=== PATIENT | male | born 2000 | race Caucasian/White ===

== ENCOUNTER 2022-02-10 14:03 | Outpatient (CLI) | payer OTHER ==
[2022-02-11 08:34] VITALS: BP 126/74
--- NOTE | 2022-02-11 08:34 | SLEEP CARE CONSULTATION ---
Information from patient questionnaire entered by Desi Clements. I have reviewed and concur with the information entered by Desi Clements. This document represents the service I personally performed and the decisions made by me, Elmo Green MD, [facility]. History of Present Illness Service Date and Time: 02/10/2022 1403 Reason for Visit: New patient Chief Complaint: reports: Insomnia, Unrefreshed sleep, Excessive daytime sleepiness, Frequent awakenings at night, Other (VERTIGO EPISODES AT NIGHT) Date of Onset: DEC 2020, VERTIGO EPISODES NOV 2021 Usual bedtime: 10-11PM Time it takes to fall asleep: VARIES, 5 MIN TO 1 HOUR Snores at night: Yes Observed to quit breathing while asleep: No Sleeps alone due to snoring: No Number of times waking at night: 1-2 Reasons for waking at night: reports: Other (VERTIGO AND UNKNOWN REASON ) Toss, Turn, or Twitch while sleeping: Yes Recalls having dreams: Yes (OCCASIONALLY ) Usually gets out of bed at: 0645 Feels refreshed in the morning: Yes (OCCASIONALLY) Morning headache: Yes (OCCASIONALLY, RESOLVES AN HOUR AFTER BEING UP ) Sleepy or fatigued during the day: Yes Ever fallen asleep while driving: No Takes day naps: Yes Dreams during day naps: No Prior sleep studies: No Additional HPI information: I had the pleasure of seeing Mr. Bhandari today regarding the possibility of him having a sleep disorder. As you know, he is a 21-year-old gentleman who complains of frequent awakenings, insomnia, unrefreshed sleep, and excessive daytime sleepiness for at least a year. He is being evaluated for possibly have seizures. The patient tells me that he normally goes to bed around 10 - 11 pm, and it takes him approximately 5 - 60 minutes to fall asleep. He has been told that he snores loudly and irregularly at night. He has never been observed to stop breathing in his sleep. He has a roommate. He can recall waking up on the average of 1 - 2 times during the night. Most of the time he wakes up because of unknown reason. He has never awakened because of his own snoring, choking, and having to gasp for air. There is a lot of tossing and turning in his sleep. He has somniloquy (sleep talking) but not somnambulism (sleep walking). Generally, there is no recollection of dreams. In the morning he usually gets up out of the bed around 6:45 a.m. not feeling refreshed nor rested. He occasionally has a morning headache. During the day he complains of feeling sleepy and fatigued. His score on [place] Sleepiness Scale is 17 out of 24. He never has fallen asleep while driving nor has had any accident due to sleepiness. Presently, he does not drive because the possible seizure. He usually takes naps during the day. He reports having impaired concentration during the day. - Parasomnia Symptoms Ever been unable to move upon waking from sleep: Yes Walks in sleep: No Talks in sleep: Yes Ever acted out dreams in sleep: No Ever felt weak in the knees when startled or emotional: No Bothered by creepy, crawly, restless sensations in legs: Yes Problems with memory or concentration: Yes Subjective Initial [place] Sleepiness Scale score: 17 (02/10/22) Past Medical History Past Medical History: reports: Other (UNKNOWN CONVULSIONS, SEEING PSYCHOLOGIST FOR POSSIBLE ANXIETY ) Social History The patient's occupation is a AM. Patient is Unknown and lives in . Have you smoked in the past 12 months: No Alcohol use: No Caffeine use: Yes Caffeine amount and frequency: 1 CAN , EVERY COUPLE OF DAYS Family History Family history of sleep disordered breathing: Yes Family Hx Sleep Apnea: Father: Snoring, Sleep apnea - Treated Allergies and Home Medications Known drug allergies: No Drug allergies reviewed: Yes Home medication list reviewed: Yes Review of Systems Weight gain over past 5 years: 15 Cardiovascular: denies: high blood pressure, palpitations, chest pain, irregular heart rate or pulse, leg or foot swelling, have to sleep sitting up, other Respiratory: denies: shortness of breath, wheeze, sputum production, chronic cough, other Gastrointestinal: denies: heartburn, difficulty swallowing, nausea, vomitting, diarrhea, abdominal pain, other Urinary: denies: incontinence, frequency, urgency, impotence, other Neurological: reports: seizure (UNDIAGNOSED ) Psychiatric: reports: anxiety Ear/Nose/Throat: reports: wisdom teeth removed, other (VERTIGO) Endocrine: reports: sluggishness, too hot or cold Musculoskeletal: denies: joint pain, neck pain, back pain, joint swelling, muscle pain or cramping, mobility problems, other Immunologic: denies: sneezing, rash, itching, allergies to food or environment, other Physical Exam Vital signs obtained and entered by: BERNARDO DOSHI Blood Pressure: 126/74 (LEFT ARM ) Cuff size: regular Heart Rate: 92 O2 Saturation: 96 Height: 5 ft 11 in Weight: 203 lb Body Mass Index: 28.3 BMI Classification: Overweight Neck circumference: 16 (INCHES) Mood/affect: Normal HEENT: No craniofacial malformation Nostrils: patent to airflow Turbinates: normal Septum: midline Mouth and throat: narrow oropharynx Hard palate: normal Uvula: normal Uvula visualization: 50% Mallampati Class II Tongue: normal in size Tonsils: small Chin and jaw: normal size and position Neck: normal w/o lymphadenopathy or thyromegaly Heart: regular rate and rhythm Lungs: clear bilaterally Extremities: no edema or clubbing Neurologic: intact Impression and Plan IMPRESSION: 1. Possible Obstructive Sleep Apnea-Hypopnea Syndrome, as suggested by history of snoring, unrefreshed sleep, cognitive impairment, and daytime hypersomnolence. Narrow oropharynx is a common predisposing factor for obstructive sleep apnea-hypopnea syndrome. I recommend proceeding to polysomnography to confirm the diagnosis and to assess severity. I informed the patient of what the sleep studies involve and after some discussion, he agreed to proceed. Plan: 1. Schedule polysomnography and return in 1 to 2 weeks after the study to discuss result and initiate therapy. Follow up with Sleep Care in: 1-2 months Visit Type: In Office Time Spent with Patient (minutes): 15 Provider Statement: I spent 100% of the Face to Face Visit with the patient with greater than 50% spent counseling the patient and coordination of care.
== END 2022-02-10 14:04 | disposition home or self-care (01) ==
LOC: SC 14:03
PROVIDERS: ATTEND Internal Medicine Pulmonary Disease
DX: R06.83 Snoring (principal); G47.8 Other sleep disorders; G47.10 Hypersomnia, unspecified; R53.83 Other fatigue; R56.9 Unspecified convulsions; E66.3 Overweight; Z68.28 Body mass index [BMI] 28.0-28.9, adult
CPT/HCPCS: 99202; 99212

== ENCOUNTER 2022-02-25 20:11 | Outpatient (CLI) | payer OTHER | END 2022-02-25 20:12 | disposition home or self-care (01) | LOC: SC 20:11 | PROVIDERS: ATTEND Internal Medicine Pulmonary Disease | DX: R06.83 Snoring (principal); G47.8 Other sleep disorders; G47.10 Hypersomnia, unspecified; R53.83 Other fatigue | CPT/HCPCS: 95810 ==

== ENCOUNTER 2022-05-02 10:45 | Outpatient (CLI) | payer OTHER ==
[2022-05-02 11:23] VITALS: BP 126/78
--- NOTE | 2022-05-02 11:23 | SLEEP CARE CONSULTATION ---
Information from patient questionnaire entered by Sol Navarro. I have reviewed and concur with the information entered by Sol Navarro. This document represents the service I personally performed and the decisions made by , Ana Arriaza ARNP. History of Present Illness Service Date and Time: 05/02/2022 1045 Initial [place] Sleepiness Scale score: 17 (02/10/22) Current [place] Sleepiness Scale score: 16 (05/02/22) Additional HPI information: ANDIE AMBRIZ returns for follow up and results of the recently performed polysomnography. The patient was informed of the following findings: No significant sleep disordered breathing with an average AHI of 0.1 and chema oxygen saturation of 93%. I explained the pathophysiology behind obstructive sleep apnea. Patient does not have sleep apnea and was advised how weight gain could increase the risk of developing sleep apnea in the future. Patient has moderate snoring. Snoring can be reduced by weight loss. Weight loss is best achieved with diet consult. Patient instructed to contact PCP for referral. Snoring can also be treated with an oral appliance from a dentist. Advised to check insurance coverage. In addition, an ENT evaluation can be do to see if other treatment is indicated. Patient does not drink alcohol. Patient was cautioned about risks of drowsy driving until sleepiness symptoms resolve. Patient denies drowsy driving. Sleep Study - Results Type of Sleep Study: Polysomnography (COMPLETED 02/25/22) Prior sleep studies: No Polysomnography/Home Sleep Study results: IMPRESSION: The quality of the study is good. The patient had normal sleep efficiency. The sleep architecture was normal.as well. Respiratory monitoring showed no significant sleep disordered breathing (AHI = 0.1) or hypoxia (chema oxygen saturation of 93%). The patient slept adequately in supine position (supine AHI = 0.0; nonsupine = 0.36). Snore was moderate in intensity. There was no significant periodic leg movement of sleep. Cardiac rhythm was normal sinus rhythm without significant arrhythmia. No abnormal behavior (parasomnia) observed during the night. Allergies and Home Medications Drug allergies reviewed: Yes (NKDA) Home medication list reviewed: Yes (Depakote 1500 mg daily) Review of Systems Review of systems same as previous: No (Partial complex epilepsy, secondary gen, pseudo seizures) Physical Exam Vital signs obtained and entered by: SOL Green MA Blood Pressure: 126/78 (LEFT ARM) Cuff size: regular Heart Rate: 73 O2 Saturation: 97 Height: 5 ft 11 in Weight: 201 lb 6.4 oz Body Mass Index: 28.0 BMI Classification: Overweight Impression and Plan Snoring but no significant sleep disordered breathing. He does have a diagnosis of epilepsy, since his last appointment and is on Depakote with good results in last few weeks. He will continue follow up with his other doctors for this. Patient advised that often weight loss will reduce snoring as well as apnea risk. An oral appliance can also be used for snoring. This would require a dental consultation. Patient cautioned not to use other online appliances as can cause bite issues. A list of accredited dentists in [facility] and one local dentist who makes oral appliances is available in the office. Patient is advised to check if insurance will cover. An ENT consult can also be helpful to determine if any other treatment is an option. * Attempt to lose weight * Avoid alcohol consumption near bedtime * The patient is cautioned about driving until sleepiness is completely resolved. * Return as needed for follow up. Counseling Topics: Weight loss health impact Visit Type: In Office Time Spent with Patient (minutes): 11 Provider Statement: I spent 100% of the Face to Face Visit with the patient with greater than 50% spent counseling the patient and coordination of care.
== END 2022-05-02 10:46 | disposition home or self-care (01) ==
LOC: SC 10:45
PROVIDERS: ATTEND Nurse Practitioner Family
DX: R06.83 Snoring (principal); G40.909 Epilepsy, unspecified, not intractable, without status epilepticus; E66.3 Overweight; Z68.28 Body mass index [BMI] 28.0-28.9, adult
CPT/HCPCS: 99212

== ENCOUNTER 2022-09-11 13:16 | Outpatient (CLI) | payer OTHER ==
--- NOTE | 2022-09-12 14:42 | MRI Report ---
PROCEDURE: CERVICAL SPINE WO INDICATIONS: HYPOTHESIA OF SKIN TECHNIQUE: Noncontrast sagittal T1 spin echo and T2 fast spin echo, sagittal STIR, foraminal oblique sagittal T2 fast spin echo, and axial gradient echo or T2 fast spin echo through the cervical spine. COMPARISON: None. FINDINGS: Image quality: Excellent. Alignment and Curvature: There is normal bony alignment. Bone Marrow: Marrow demonstrates normal overall signal. Spinal Cord: Visualized spinal cord has normal size and signal. No cerebellar tonsillar herniation. Paraspinous Soft Tissues: No paravertebral masses. Prevertebral soft tissues are normal in thicknes s. C2-C3: No disc bulge, spinal stenosis or foraminal narrowing. C3-C4: No disc bulge, spinal stenosis or foraminal narrowing. C4-C5: No disc bulge, spinal stenosis or foraminal narrowing. C5-C6: No disc bulge, spinal stenosis or foraminal narrowing. C6-C7: No disc bulge, spinal stenosis or foraminal narrowing. C7-T1: No disc bulge, spinal stenosis or foraminal narrowing. IMPRESSION: Unremarkable exam. Reviewed by: Grecia Meyer MD on 09/12/2022 2:41 PM PDT Approved by: Grecia Meyer MD on 09/12/2022 2:41 PM PDT Station ID: [id number]
== END 2022-09-11 13:17 | disposition home or self-care (01) ==
LOC: DI 13:16
PROVIDERS: ATTEND Physician Assistant
DX: R20.1 Hypoesthesia of skin (principal); R56.9 Unspecified convulsions

== ENCOUNTER 2022-11-18 09:30 | Outpatient (CLI) | payer OTHER | END 2022-11-18 09:45 | disposition home or self-care (01) | LOC: LAB.N 09:30 | PROVIDERS: ATTEND Emergency Medicine | DX: J02.8 Acute pharyngitis due to other specified organisms (principal) | CPT/HCPCS: 87070 ==